=== PATIENT | female | born 1945 | race Two or more races ===

== ENCOUNTER 2019-09-16 11:42 | Outpatient (CLI) | payer OTHER ==
[~2019-09-16 11:42] MED LIST: ALLEGRA60 M1 PO; ALLERGY MED25 MG PO; GLUCOPHAGE XR750 MG PO; SIMVASTATIN40 MG PO; SYNTHROID75 MCG PO; XYZAL5 MG PO
== END 2019-09-16 12:02 | disposition home or self-care (01) ==
LOC: NUCLEAR 11:42
DX: D51.3 Other dietary vitamin B12 deficiency anemia (principal); I87.2 Venous insufficiency (chronic) (peripheral); I10 Essential (primary) hypertension; E11.9 Type 2 diabetes mellitus without complications; E03.8 Other specified hypothyroidism; E78.2 Mixed hyperlipidemia; E55.9 Vitamin D deficiency, unspecified; L97.321 Non-pressure chronic ulcer of left ankle limited to breakdown of skin; L97.311 Non-pressure chronic ulcer of right ankle limited to breakdown of skin; I70.213 Atherosclerosis of native arteries of extremities with intermittent claudication, bilateral legs

== ENCOUNTER 2019-09-17 11:38 | Outpatient (CLI) | payer OTHER | END 2019-09-17 12:02 | disposition home or self-care (01) | LOC: NUCLEAR 11:38 | DX: D51.3 Other dietary vitamin B12 deficiency anemia (principal); I87.2 Venous insufficiency (chronic) (peripheral); I10 Essential (primary) hypertension; E11.9 Type 2 diabetes mellitus without complications; E03.8 Other specified hypothyroidism; E78.2 Mixed hyperlipidemia; E55.9 Vitamin D deficiency, unspecified; L97.311 Non-pressure chronic ulcer of right ankle limited to breakdown of skin; L97.321 Non-pressure chronic ulcer of left ankle limited to breakdown of skin; I70.213 Atherosclerosis of native arteries of extremities with intermittent claudication, bilateral legs ==

== ENCOUNTER → 2020-06-02 15:41 | Outpatient (CLI) | payer OTHER | END | disposition home or self-care (01) | LOC: LAB 15:41 | PROVIDERS: ATTEND Radiology Diagnostic Radiology | DX: N20.0 Calculus of kidney (principal) ==

== ENCOUNTER 2020-06-05 11:34 | Outpatient (CLI) | payer OTHER | END 2020-06-05 11:48 | disposition home or self-care (01) | LOC: TOM 11:34 | PROVIDERS: ATTEND Internal Medicine Hematology & Oncology | DX: R22.1 Localized swelling, mass and lump, neck (principal); K45.8 Other specified abdominal hernia without obstruction or gangrene; N99.0 Postprocedural (acute) (chronic) kidney failure; D51.3 Other dietary vitamin B12 deficiency anemia; I87.2 Venous insufficiency (chronic) (peripheral); I73.89 Other specified peripheral vascular diseases; I10 Essential (primary) hypertension; E11.9 Type 2 diabetes mellitus without complications; E03.8 Other specified hypothyroidism; E78.2 Mixed hyperlipidemia; E55.9 Vitamin D deficiency, unspecified; L97.321 Non-pressure chronic ulcer of left ankle limited to breakdown of skin; L97.311 Non-pressure chronic ulcer of right ankle limited to breakdown of skin; I70.213 Atherosclerosis of native arteries of extremities with intermittent claudication, bilateral legs | CPT/HCPCS: 70492; 71260; 74177; Q9965 ==

== ENCOUNTER 2020-08-08 13:19 | Outpatient (CLI) | payer OTHER | END 2020-08-08 13:40 | disposition home or self-care (01) | LOC: OFIC 805 13:19 | PROVIDERS: ATTEND Otolaryngology | DX: R22.1 Localized swelling, mass and lump, neck (principal); C85.81 Other specified types of non-Hodgkin lymphoma, lymph nodes of head, face, and neck ==

== ENCOUNTER → 2020-08-24 | Outpatient (CLI) | payer OTHER ==
[~2020-08-24] MED LIST changes: +LASIX20 MG PO; +METFORMIN HCL1000 M2 PO; +PROTONIX40 MG PO
== END | disposition home or self-care (01) ==
LOC: NUCLEAR 09:00
PROVIDERS: ATTEND Otolaryngology
DX: C85.91 Non-Hodgkin lymphoma, unspecified, lymph nodes of head, face, and neck (principal)
CPT/HCPCS: 78815; A9552

== ENCOUNTER 2020-08-28 10:53 | Outpatient (CLI) | payer OTHER ==
[~2020-08-28 10:53] MED LIST changes: -LASIX20 MG PO; -METFORMIN HCL1000 M2 PO; -PROTONIX40 MG PO
[2020-09-12] MEDS ORDERED: METFORMIN HCL1000 M2 PO (13:26)
[2020-09-12] MEDS ORDERED: PROTONIX40 MG PO (13:27)
[2020-09-12] MEDS ORDERED: LASIX20 MG PO (13:27)
== END 2020-08-28 10:58 | disposition home or self-care (01) ==
LOC: SONOGRAMA 10:53 → OFIC 805 10:53 → SONOGRAMA 10:58
PROVIDERS: ATTEND Pathology Anatomic Pathology & Clinical Pathology
DX: C85.90 Non-Hodgkin lymphoma, unspecified, unspecified site (principal)

== ENCOUNTER 2020-08-29 14:12 | Emergency (ER) | payer OTHER ==
[~2020-08-29] VITALS: Ht 157.5 cm; Wt 71.7 kg
[2020-09-12] MEDS ORDERED: METFORMIN HCL1000 M2 PO (13:26)
[2020-09-12] MEDS ORDERED: PROTONIX40 MG PO (13:27)
[2020-09-12] MEDS ORDERED: LASIX20 MG PO (13:27)
== END 2020-08-29 23:58 | disposition home or self-care (01) ==
LOC: ER 14:12
DX: K29.60 Other gastritis without bleeding (principal); Z03.818 Encounter for observation for suspected exposure to other biological agents ruled out

== ENCOUNTER → 2020-09-05 | Outpatient (CLI) | payer OTHER ==
[~2020-09-05] MED LIST changes: +LASIX20 MG PO; +METFORMIN HCL1000 M2 PO; +PROTONIX40 MG PO
== END | disposition home or self-care (01) ==
LOC: OFIC 805 14:15
PROVIDERS: ATTEND Otolaryngology
DX: C85.81 Other specified types of non-Hodgkin lymphoma, lymph nodes of head, face, and neck (principal); R22.1 Localized swelling, mass and lump, neck

== ENCOUNTER 2020-09-18 05:50 | Day surgery (SDC) | payer OTHER | END 2020-09-18 20:25 | disposition home or self-care (01) | LOC: CIR.AMB 05:50 | PROVIDERS: ATTEND Otolaryngology | DX: C81.01 Nodular lymphocyte predominant Hodgkin lymphoma, lymph nodes of head, face, and neck (principal); C79.89 Secondary malignant neoplasm of other specified sites; Z20.828 Contact with and (suspected) exposure to other viral communicable diseases ==

== ENCOUNTER 2020-09-26 12:37 | Outpatient (CLI) | payer OTHER | END 2020-09-26 18:05 | disposition home or self-care (01) | LOC: OFIC 805 12:37 | PROVIDERS: ATTEND Otolaryngology | DX: C44.42 Squamous cell carcinoma of skin of scalp and neck (principal) ==

== ENCOUNTER 2020-10-03 12:45 | Inpatient (IN) | payer OTHER ==
[~2020-10-03] VITALS: Ht 149.9 cm; Wt 69.4 kg
[2020-10-09] MEDS ORDERED: ST. JOSEPH ASPI81 M2 (14:58)
[2020-10-09] MEDS ORDERED: LATANOPROST2.5 ML (14:58)
[2020-10-09] MEDS ORDERED: CITRACAL-D3 MA1 EACH (14:59)
[2020-10-09] MEDS ORDERED: HYDROCHLOROTHIA25 MG (14:59)
[2020-10-09] MEDS ORDERED: VASOFLEX HD CA1 EACH (14:59)
[2020-10-09] MEDS ORDERED: LOSARTAN POTAS100 MG (14:59)
[2020-10-09] MEDS ORDERED: FAMOTIDINE20 MG (14:59)
== END 2020-10-09 16:15 | disposition home or self-care (01) | DRG 148 ==
LOC: O/R 10-09 07:51 → OB/GYN 10-09 11:01 → O/R 10-09 11:02 → SURH 10-09 12:45 → O/R 10-09 16:15
PROVIDERS: ADMIT Surgery; ATTEND Surgery
PROC: 05HN03Z Insertion of Infusion Device into Left Internal Jugular Vein, Open Approach (ICD-10-PCS; principal; 2020-10-09 14:00)
DX: C09.1 Malignant neoplasm of tonsillar pillar (anterior) (posterior) (principal); I10 Essential (primary) hypertension

== ENCOUNTER 2020-10-17 10:30 | Outpatient (CLI) | payer OTHER ==
[~2020-10-17 10:30] MED LIST changes: +CITRACAL-D3 MA1 EACH; +FAMOTIDINE20 MG; +HYDROCHLOROTHIA25 MG; +LATANOPROST2.5 ML; +LOSARTAN POTAS100 MG; +ST. JOSEPH ASPI81 M2; +VASOFLEX HD CA1 EACH
== END 2020-10-17 15:53 | disposition home or self-care (01) ==
LOC: OFIC 805 10:30
PROVIDERS: ATTEND Otolaryngology
DX: C44.42 Squamous cell carcinoma of skin of scalp and neck (principal); C09.8 Malignant neoplasm of overlapping sites of tonsil

== ENCOUNTER 2021-04-03 08:54 | Outpatient (CLI) | payer OTHER | END 2021-04-03 08:55 | disposition home or self-care (01) | LOC: NUCLEAR 08:54 | DX: C09.1 Malignant neoplasm of tonsillar pillar (anterior) (posterior) (principal) | CPT/HCPCS: 78815; A9552 ==

== ENCOUNTER 2021-04-16 07:06 | Day surgery (SDC) | payer OTHER | END 2021-04-16 11:10 | disposition home or self-care (01) | LOC: CIR.AMB 07:06 | PROVIDERS: ATTEND Surgery | DX: C76.0 Malignant neoplasm of head, face and neck (principal); Z20.822 Contact with and (suspected) exposure to COVID-19 ==

== ENCOUNTER 2021-06-28 08:30 | Outpatient (CLI) | payer OTHER | END 2021-06-28 15:49 | disposition home or self-care (01) | LOC: NUCLEAR 08:30 | DX: C09.1 Malignant neoplasm of tonsillar pillar (anterior) (posterior) (principal) | CPT/HCPCS: 78815; A9552 ==

== ENCOUNTER 2022-09-19 10:30 | Inpatient (IN) | payer OTHER ==
[~2022-09-19] VITALS: Ht 144.8 cm; Wt 53.5 kg
[2022-09-19] MEDS ORDERED: SIMVASTA PO (13:34)
[2022-09-19] MEDS ORDERED: GLUMETZA500 MG PO (13:34)
[2022-09-19] MEDS ORDERED: ALENDRONATE SOD10 MG PO (13:34)
[2022-09-19] MEDS ORDERED: [UNRECOGNIZED DRUG - OTHER] PO (13:35)
[2022-09-24] MEDS ORDERED: CITRACAL-VIT D1 EAC2 (13:32)
[2022-09-24] MEDS ORDERED: MAXIMUM D3325 MCG (13:32)
[2022-09-24] MEDS ORDERED: PENTOXIFYLLINE400 MG (13:32)
[2022-09-24] MEDS ORDERED: ATORVASTATIN CA20 MG (13:33)
[2022-09-24] MEDS ORDERED: VASOFLEX HD CA1 EACH (13:33)
[2022-09-24] MEDS ORDERED: HYDROCHLOROTHIA25 MG (13:33)
[2022-09-24] MEDS ORDERED: INTEGRA F CAPS1 EAC1 (13:33)
[2022-09-24] MEDS ORDERED: AMLODIPINE BESYL5 MG (13:33)
[2022-09-24] MEDS ORDERED: VASOFLEX TABLE1 EACH (13:35)
[2022-09-26] MEDS ORDERED: CEFADROXIL500 MG PO (15:34)
[2022-09-26] MEDS ORDERED: ELIQUIS2.5 MG PO (15:34)
[2022-09-26] MEDS ORDERED: PERCOCET 5-3251 EACH PO (15:34)
== END 2022-09-26 22:30 | disposition home or self-care (01) | DRG 470 ==
LOC: O/R 09-24 07:05 → MEDJ 09-24 07:05 → SURH 09-24 10:30 → MEDJ 09-24 21:51
PROVIDERS: ADMIT Orthopaedic Surgery; ATTEND Orthopaedic Surgery
PROC: 0MNN0ZZ Release Right Knee Bursa and Ligament, Open Approach (ICD-10-PCS; 2022-09-24)
PROC: 0QR807Z Replacement of Right Femoral Shaft with Autologous Tissue Substitute, Open Approach (ICD-10-PCS; 2022-09-24)
PROC: 0SRC0J9 Replacement of Right Knee Joint with Synthetic Substitute, Cemented, Open Approach (ICD-10-PCS; principal; 2022-09-24 14:30)
DX: M17.11 Unilateral primary osteoarthritis, right knee (principal); M22.11 Recurrent subluxation of patella, right knee; E66.9 Obesity, unspecified; Z68.25 Body mass index [BMI] 25.0-25.9, adult

== ENCOUNTER 2023-09-11 09:45 | Inpatient (IN) | payer OTHER ==
[~2023-09-11] VITALS: Ht 149.9 cm; Wt 55.3 kg
[~2023-09-11 09:45] MED LIST changes: +ALENDRONATE SOD10 MG PO; +AMLODIPINE BESYL5 MG; +ATORVASTATIN CA20 MG; +CEFADROXIL500 MG PO; +CITRACAL-VIT D1 EAC2; +ELIQUIS2.5 MG PO; +GLUMETZA500 MG PO; +INTEGRA F CAPS1 EAC1; +MAXIMUM D3325 MCG; +PENTOXIFYLLINE400 MG; +PERCOCET 5-3251 EACH PO; +SIMVASTA PO; +VASOFLEX TABLE1 EACH; +[UNRECOGNIZED DRUG - OTHER] PO
[2023-09-11 12:35] LABS: INR < 0.93; PROTHROMBIN TIME 9.8 SECONDS (9.0-11.5)
[2023-09-17 06:46] LABS: HEMATOCRIT 30.7 % (36.0-45.00); HEMOGLOBIN 10.6 g/dL (12.0-15.00); MEAN CELL VOLUME 91.3 fL (80.00-100.00); MEAN CORPUSCULAR HEMOGLOBIN 31.6 pg (27.00-32.0); MEAN CORPUSCULAR HGB CONC 34.7 g/dl (32.0-36.0); PLATELET COUNT 131 K/uL (150-450); RED BLOOD COUNT 3.36 M/uL (4.00-6.00); RED CELL DISTRIBUTION WIDTH 14.2 % (11.5-14.5)
[2023-09-18 06:30] LABS: HEMATOCRIT 29.6 % (36.0-45.00); HEMOGLOBIN 10.1 g/dL (12.0-15.00); MEAN CORPUSCULAR HEMOGLOBIN 31.5 pg (27.00-32.0); MEAN CORPUSCULAR HGB CONC 34.3 g/dl (32.0-36.0); RED BLOOD COUNT 3.21 M/uL (4.00-6.00)
[2023-09-18 06:32] LABS: PLATELET COUNT 129 K/uL (150-450)
[2023-09-18] MEDS ORDERED: ELIQUIS2.5 MG PO (15:58)
[2023-09-18] MEDS ORDERED: PERCOCET 5-3251 EACH PO (15:58)
[2023-09-18] MEDS ORDERED: CEFADROXIL500 MG PO (15:58)
== END 2023-09-18 20:19 | disposition home or self-care (01) | DRG 470 ==
LOC: O/R 09-16 06:26 → OB/GYN 09-16 06:26 → SURG 09-16 07:00 → OB/GYN 09-16 19:08
PROVIDERS: ADMIT Orthopaedic Surgery; ATTEND Orthopaedic Surgery
PROC: 0SRD0JZ Replacement of Left Knee Joint with Synthetic Substitute, Open Approach (ICD-10-PCS; principal; 2023-09-16 07:00)
DX: M17.12 Unilateral primary osteoarthritis, left knee (principal); D62 Acute posthemorrhagic anemia; M22.12 Recurrent subluxation of patella, left knee